=== PATIENT | male | born 1945 | race Caucasian/White ===

== ENCOUNTER → 2016-05-10 18:28 | Outpatient (CLI) | payer MEDICARE | END | disposition home or self-care (01) | LOC: D.LABREF 18:28 | DX: L98.9 Disorder of the skin and subcutaneous tissue, unspecified (principal) ==

== ENCOUNTER → 2016-08-22 20:15 | Outpatient (CLI) | payer MEDICARE ==
[2016-08-22 22:22] LABS: LYMPH - BF 25 %; MACROPHAGES BF 4 %; MESOTHELIALS BF 2 %; NEUT - BF 69 %
== END | disposition home or self-care (01) ==
LOC: D.LABREF 20:15
PROVIDERS: Family Medicine
DX: M25.461 Effusion, right knee (principal); M25.561 Pain in right knee

== ENCOUNTER → 2016-10-12 15:00 | Outpatient (CLI) | payer MEDICARE | END | disposition home or self-care (01) | LOC: D.LABREF 15:00 | DX: M70.51 Other bursitis of knee, right knee (principal) ==